=== PATIENT | female | born 1930 | race Caucasian/White ===

== ENCOUNTER 2017-01-30 15:40 | Emergency (ER) | payer OTHER ==
[2017-01-30 15:58] VITALS: BMI 29.2
--- NOTE | 2017-01-30 16:01 | PDOC ---
History of Present Illness - General History Source: Patient, Family, Old Records Exam Limitations: No Limitations <Marguerite Garces - Last Filed: 01/30/17 17:42> - General History Source: Patient Exam Limitations: No Limitations - History of Present Illness Initial Comments: The patient is a 86 year old female with a significant past medical history of dermatitis and cellulitis, who presents to the emergency department today for further evaluation of right leg pain for one week. The patient states that her right leg has been chronically swollen for two months with new onset worsening leg pain this week. The patient states that her pain has become so bad she has been unable to ambulate. She reports associated right leg erythema. She reports non-compliance with her Furosemide medication. Patient has recently seen Dr. Dove but was unable elaborate. The patient denies fever, chills, and sweats. The patient denies nausea, vomiting, and diarrhea. The patient denies chest pain, cough, and shortness of breath. PCP: Dr. Louis [phone] PAST MEDICAL HISTORY: No significant history reported PAST SURGICAL HISTORY: No significant history reported FAMILY HISTORY: No pertinent history reported SOCIAL HISTORY: None reported ALLERGIES: As per nursing notes MEDICATIONS: Furosemide 40 mg PO daily, Levothyroxine 25 mg PO daily, otherwise per nursing note. <Burt Lutz - Last Filed: 01/30/17 18:02> - General Chief Complaint: Edema Stated Complaint: BLE EDEMA Time Seen by Provider: 01/30/17 15:44 Past History - Past Medical History Cancer: Yes (skin (face, nose) uterine ca) Thyroid Disease: Yes - Surgical History Abdominal Surgery: Yes (REMOVED TUMOR) Appendectomy: Yes - Immunization History Immunization Up to Date: Yes - Psycho/Social/Smoking Cessation Hx Anxiety: No Suicidal Ideation: No Smoking History: Never smoked Have you smoked in the past 12 months: No Hx Alcohol Use: No Drug/Substance Use Hx: No Substance Use Type: None <Marguerite Garces - Last Filed: 01/30/17 17:42> <Burt Lutz - Last Filed: 01/30/17 18:02> - Past Medical History Allergies/Adverse Reactions: Allergies Allergy/AdvReac Type Severity Reaction Status Date / Time levofloxacin [From Levaquin] Allergy Unknown Verified 06/01/17 17:28 cephalexin monohydrate Allergy Verified 01/30/17 15:42 [From Keflex] Home Medications: Ambulatory Orders Mupirocin Ointment [Bactroban 2% Ointment -] 1 applic TP BID 02/20/16 Furosemide [Lasix -] 40 mg PO BID@0600,1400 #0 tablet 03/02/16 Clindamycin [Cleocin -] 300 mg PO TID #21 capsule 01/30/17 Levothyroxine [Synthroid -] 25 mcg PO DAILY@0700 01/30/17 Nystatin/Triamcinolone Top Cr [Mycolog II -] 1 gm TP BID #1 tube 01/30/17 Review of Systems - Review of Systems Able to Perform ROS?: Yes Comments:: CONSTITUTIONAL: Absent: fever, chills, diaphoresis, generalized weakness, malaise, loss of appetite HEENT: Absent: rhinorrhea, nasal congestion, throat pain, throat swelling, difficulty swallowing, mouth swelling, ear pain, eye pain, visual Changes CARDIOVASCULAR: Absent: chest pain, syncope, palpitations, irregular heart rate, lightheadedness , peripheral edema RESPIRATORY: Absent: cough, shortness of breath, dyspnea with exertion, orthopnea, wheezing, stridor, hemoptysis GASTROINTESTINAL: Absent: abdominal pain, abdominal distension, nausea, vomiting, diarrhea, constipation, melena, hematochezia GENITOURINARY: Absent: dysuria, frequency, urgency, hesitancy, hematuria, flank pain, genital pain MUSCULOSKELETAL: Present: Bilateral edema Absent: myalgia, arthralgia. SKIN: Present: Erythema bilateral lower extremities Absent: Pallor HEMATOLOGIC/IMMUNOLOGIC: Absent: easy bleeding, easy bruising, lymphadenopathy, frequent infections ENDOCRINE: Absent: unexplained weight gain, unexplained weight loss, heat intolerance, cold intolerance NEUROLOGIC: Absent: headache, focal weakness or paresthesias, dizziness, unsteady gait, seizure, mental status changes, bladder or bowel incontinence PSYCHIATRIC: Absent: anxiety, depression, suicidal or homicidal ideation, hallucinations. <Burt Lutz - Last Filed: 01/30/17 18:02> *Physical Exam - Vital Signs Last Vital Signs Temp Pulse Resp BP Pulse Ox 97.6 F 72 20 163/69 97 01/30/17 15:41 01/30/17 15:41 01/30/17 15:41 01/30/17 15:41 01/30/17 15:41 - Physical Exam Comments: GENERAL: Well developed, well nourished. Awake and alert. In no acute distress. HEENT: Normocephalic, atraumatic. PERRLA, EOMI. No conjunctival pallor. Sclera are non- icteric. Moist mucous membranes. Oropharynx is clear. NECK: Supple. Full ROM. No JVD. Carotid pulses 2+ and symmetric, without bruits. No thyromegaly. No lymphadenopathy. CARDIOVASCULAR: Regular rate and rhythm. No murmurs, rubs, or gallops. Distal pulses are 2+ and symmetric. PULMONARY: No evidence of respiratory distress. Lungs clear to auscultation bilaterally. No wheezing, rales or rhonchi. ABDOMINAL: Soft. Non-tender. Non-distended. No rebound or guarding. No organomegaly. Normoactive bowel sounds. MUSCULOSKELETAL Normal range of motion at all joints. No bony deformities or tenderness. No CVA tenderness. EXTREMITIES: No cyanosis. No clubbing.Bilateral lower extremity edema (R>L) circumferential erythema of the (R>L) no calf tenderness. SKIN: (+) Warm and dry. Diffuse areas of ringed lesions with central clearing and raised outer edges NEUROLOGICAL: Alert, awake, appropriate. Cranial nerves 2-12 intact. No deficits to light touch and temperature in face, upper extremities and lower extremities. No motor deficits in the in face, upper extremities and lower extremities. Normoreflexic in the upper and lower extremities. Normal speech. Toes are downgoing bilaterally. Gait is normal without ataxia. PSYCHIATRIC: Cooperative. Good eye contact. Appropriate mood and affect. <Burt Lutz - Last Filed: 01/30/17 18:02> ED Treatment Course - LABORATORY CBC & Chemistry Diagram: 01/30/17 16:09 01/30/17 16:09 - RADIOLOGY Radiology Studies Ordered: Category Date Time Status CHEST PA & LAT [RAD] Stat Radiology 01/30/17 15:45 Ordered DUPLEX VASCUL US-1 LEG [US] Stat Ultrasound 01/30/17 15:45 Ordered <Marguerite Garces - Last Filed: 01/30/17 17:42> - LABORATORY CBC & Chemistry Diagram: 01/30/17 16:09 01/30/17 16:09 - RADIOLOGY Radiograph Interpretation: 01/30/17 18:01 EXAM#: TYPE/EXAM: RESULT: [id number] US/DUPLEX VASCUL US-1 LEG Right lower extremity venous ultrasound Clinical information given: RLE pain, swelling The exam was performed utilizing compression, grayscale, color flow and doppler sonography. Evaluation of the right common femoral, femoral, deep femoral and popliteal veins demonstrates no sonographic evidence of deep vein thrombosis. Evaluation of the posterior tibial veins is limited due to soft tissue edema. No obvious superficial thrombophlebitis is noted. Impression: No DVT is identified involving the right leg. There is limited visualization of the posterior tibial veins due to soft tissue edema. If there is clinical concern for possible isolated calf vein thrombosis or if there is a clinical diagnosis of uncomplicated superficial thrombophlebitis, then correlation with close follow up sonography is suggested. Reported By: Dustin Jurado MD 01/30/17 1721 <Burt Lutz - Last Filed: 01/30/17 18:02> Medical Decision Making - Medical Decision Making 01/30/17 15:57 86-year-old female with history of hypertension and hypothyroid disease as well as chronic BLE edema and cellulitis presents the emergency Department with complaints of pain and swelling with erythema to the right lower extremity; she also has a fungal rash to her torso. Differential diagnosis includes but is not limited to: CHF, DVT, cellulitis, electrolyte abnormality, toxic/metabolic derangement, tinea corporis. Plan: 1. Labs 2. Lower extremity ultrasound to rule out DVT 3. Pain management 4. Observe and reevaluate 01/30/17 17:42 Addendum: Labs are reviewed and are noted in the EMR. She has no white blood cell count. The lower extremity ultrasound is negative for DVT. We'll discharge home on clindamycin 300 mg 3 times a day times one week and nystatin cream for the tinea rash. The patient is to follow-up with her primary care physician within the next 1-3 days and return to the emergency department if her symptoms persist, worsen, or new symptoms arise. <Marguerite Garces - Last Filed: 01/30/17 17:42> *DC/Admit/Observation/Transfer - Discharge Dispostion Admit: No - Attestations Physician Attestion: 01/30/17 16:01 I, Dr. Marguerite Garces, attest that the scribes documentation that appears above has been prepared under my direction and personally reviewed by me in its entirety. I confirmed that the note above accurately reflects all work, treatment, procedures, and medical decision-making performed by me. <Marguerite Garces - Last Filed: 01/30/17 17:42> - Attestations Scribe Attestion: Documentation prepared by Burt Lutz, acting as medical record librarians teacher for Marguerite Garces MD. <Burt Lutz - Last Filed: 01/30/17 18:02> Diagnosis at time of Disposition: Cellulitis, Tinea corporis - Discharge Dispostion Condition at time of disposition: Stable - Prescriptions Prescriptions: Clindamycin [Cleocin -] 300 mg PO TID #21 capsule Nystatin/Triamcinolone Top Cr [Mycolog II -] 1 gm TP BID #1 tube - Patient Instructions Printed Discharge Instructions: DI for Cellulitis -- Adult, DI for Tinea Corporis Additional Instructions: Take Clindamycin (antibiotic) for the cellultitis: 300mg-one tablet three times per day. Use the anti-fungal creamtwice per day on the areas that are affected. Please follow-up with your primary care physician within the next 3 days and return to the ED if your symptoms persist, worsen or new symptoms arise.
[2017-01-30 16:36] LABS: BASOPHIL 0.7 % (0-2.0); EOSINOPHIL 7.2 % (0-4.5); MCH 26.9 pg (25.7-33.7); MCHC 32.2 g/dl (32.0-36.0); MEAN CELL VOLUME 83.7 fl (80-96); MEAN PLT VOLUME 8.3 fl (7.5-11.1); NEUTROPHILS 68.9 % (42.8-82.8); PLATELET COUNT 280 K/MM3 (134-434); WHITE BLOOD COUNT 6.9 K/mm3 (4.0-10.8)
[2017-01-30 16:37] LABS: ALBUMIN 3.5 g/dl (3.5-5.0); BILIRUBIN,TOTAL 0.4 mg/dl (0.2-1.0); CALCIUM 8.8 mg/dl (8.4-10.2); COCKROFT - GAULT 41.7605; CREATININE 1.1 mg/dl (0.6-1.3); TOT PROT 6.2 g/dl (6.4-8.3)
[2017-01-30] MEDS ORDERED: CLINDAMYCIN HCL 150 MG CAPSULE (FP) PO ONE (17:34)
[2017-01-30] MEDS ORDERED: CLINDAMYCIN HCL 150 MG CAPSULE (FP) ONE (17:40)
[2017-01-30 18:05] LABS: URINE APPEARANCE Clear; URINE BILIRUBIN Negative (NEGATIVE); URINE BLOOD Negative (NEGATIVE); URINE GLUCOSE (UA) Negative (NEGATIVE); URINE KETONE Negative (NEGATIVE); URINE LEUK ESTERASE Negative (NEGATIVE); URINE NITRITE Negative (NEGATIVE); URINE PROTEIN Negative (NEGATIVE); URINE UROBILINOGEN 0.2 E.U/dl (0.2-1.0)
[2017-01-30 18:09] LABS: URINE COLOR YELLOW
[2017-01-30 18:48] VITALS: BP 173/69; PULSE 70; TEMP 97.4
== END 2017-01-30 19:12 | disposition home or self-care (01) ==
LOC: FER 15:40
DX: L03.115 Cellulitis of right lower limb (principal); B35.4 Tinea corporis; I10 Essential (primary) hypertension; E03.9 Hypothyroidism, unspecified; M79.89 Other specified soft tissue disorders; Z85.828 Personal history of other malignant neoplasm of skin
CPT/HCPCS: 36415; 71010-TC; 80053; 81003; 83880; 85025; 93971-TC; 99283-25

== ENCOUNTER 2017-08-24 00:15 | Emergency (ER) | payer OTHER ==
[2017-08-24 00:57] VITALS: BP 145/73; PULSE 78; TEMP 97.7; BMI 23.8
--- NOTE | 2017-08-24 02:16 | PDOC ---
History of Present Illness - General Chief Complaint: Laceration Stated Complaint: LACERATION TO LEFT LOWER LEG Time Seen by Provider: 08/24/17 00:17 - History of Present Illness Initial Comments: This 86-year-old woman with chronic lower extremity edema and intermittent cellulitis presents by ambulance with a history of wound of the left lower leg. Patient states that as she was removing a carton of orange juice from her refrigerator just prior to presentation, it fell from her hands and struck the anterior portion of her left lower leg. She subsequently sustained a wound in this area with copious bleeding. EMS was called and pressure dressing applied. Patient was transported here. She denies pain currently and has no other complaints. She was seen by her PMD, Dr. Garcia, yesterday for general medical follow-up. There was no change in medications or medical care at this time. Past History - Past Medical History Allergies/Adverse Reactions: Allergies Allergy/AdvReac Type Severity Reaction Status Date / Time levofloxacin [From Levaquin] Allergy Unknown Verified 08/24/17 00:52 cephalexin monohydrate Allergy Verified 08/24/17 00:52 [From Keflex] Home Medications: Ambulatory Orders Furosemide [Lasix -] 40 mg PO BID@0600,1400 #0 tablet 03/02/16 Levothyroxine [Synthroid -] 25 mcg PO DAILY@0700 01/30/17 Cancer: Yes (skin (face, nose) uterine ca) COPD: No Thyroid Disease: Yes - Surgical History Abdominal Surgery: Yes (REMOVED TUMOR) Appendectomy: Yes - Immunization History Immunization Up to Date: Yes - Suicide/Smoking/Psychosocial Hx Smoking History: Never smoked Have you smoked in the past 12 months: No Information on smoking cessation initiated: No Hx Alcohol Use: No Drug/Substance Use Hx: No Substance Use Type: None Review of Systems - Review of Systems Able to Perform ROS?: Yes Comments:: 12 point review of systems is negative except for what is noted in the history of present illness *Physical Exam - Vital Signs Last Vital Signs Temp Pulse Resp BP Pulse Ox 97.7 F 78 16 145/73 100 08/24/17 00:52 08/24/17 00:52 08/24/17 00:52 08/24/17 00:52 08/24/17 00:52 - Physical Exam Comments: GENERAL: Elderly female, alert and oriented 3, in no acute distress HEAD: Normal with no signs of trauma. EYES: PERRLA, EOMI, sclera anicteric, conjunctiva clear. ENT: Ears normal, nares patent, oropharynx clear without exudates. Dry mucous membranes. NECK: Normal range of motion, supple without lymphadenopathy, JVD, or masses. LUNGS: Breath sounds equal, clear to auscultation bilaterally. No wheezes, and no crackles. HEART:Regular rate and rhythm, normal S1 and S2 without murmur, rub or gallop. ABDOMEN:.normal bowel sounds No guarding,tenderness or rebound.No masses No distention. EXTREMITIES: 3+ pitting edema bilateral lower extremities to the knees. 3.5 cm irregular, nonbleeding skin tear noted anterior left lower leg NEUROLOGICAL: Cranial nerves II through XII grossly intact. Normal speech. No focal neurological deficits. MUSCULOSKELETAL: Back non-tender to palpation, no CVA tenderness SKIN: Warm, Dry, normal turgor, no rashes or lesions noted. Procedures - Laceration/Wound Repair Left Lower Anterior Leg Wound Length: to 2.5 cm Wound's Depth, Shape: superficial, irregular Irrigated w/ Saline: Yes Betadine Prep: No Wound Repaired With: Dermabond Progress Note - Progress Note Progress Note: As noted above, 86-year-old woman with a history of chronic edema bilateral lower extremities presents with skin tear of the left lower leg. Wound cleansed with sterile normal saline and closed with Dermabond skin adhesive. Sterile dry gauze followed by gauze roll applied. Patient should keep dressing intact and follow-up with PMD, Dr. Garcia within the next 5 days. If she has increase in pain/swelling in the area prior to that, she should return to ER. Meanwhile, she should keep left lower leg elevated as much as possible. *DC/Admit/Observation/Transfer Diagnosis at time of Disposition: Skin tear of left lower leg without complication Qualifiers: Encounter type: initial encounter Qualified Code(s): S81.812A - Laceration without foreign body, left lower leg, initial encounter - Discharge Dispostion Disposition: HOME Condition at time of disposition: Stable - Referrals - Patient Instructions Printed Discharge Instructions: DI for Laceration Repair With Dermabond Additional Instructions: keep area around wound as dry as possible elevate left leg as much as possible keep bandage intact until seen by Dr Daniels Follow-up by within 4 days Return to ER if wound has persistent bleeding or increased pain - Post Discharge Activity
== END 2017-08-24 04:05 | disposition home or self-care (01) ==
LOC: FER 00:15
PROC: 0HQLXZZ Repair Left Lower Leg Skin, External Approach (ICD-10-PCS; principal; 2017-08-24)
DX: S81.812A Laceration without foreign body, left lower leg, initial encounter (principal); W20.8XXA Other cause of strike by thrown, projected or falling object, initial encounter; Y93.89 Activity, other specified; Y92.000 Kitchen of unspecified non-institutional (private) residence as the place of occurrence of the external cause; M79.89 Other specified soft tissue disorders; E07.9 Disorder of thyroid, unspecified
CPT/HCPCS: 99281-25